=== PATIENT | male | born 1985 | race Caucasian/White ===

== ENCOUNTER 2022-08-31 05:03 | Emergency (ER) | payer OTHER ==
[2022-08-31] MEDS ORDERED: ceFAZolin 2 GM in Sodium Chloride 0.9% 50 ML IV ONE (06:06)
[2022-08-31] MEDS ORDERED: Sodium Chloride 0.9% 10 ML Syringe FLUSH PRN (06:06)
[2022-08-31] MEDS ORDERED: Diphtheria,Pertussis(Acell),Tetanus Vaccine 0.5 ML Syringe IM ONE (07:30)
== END 2022-08-31 08:09 | disposition other institution (70) ==
LOC: JD.ED 05:03
DX: S68.011A Complete traumatic metacarpophalangeal amputation of right thumb, initial encounter (principal); Z23 Encounter for immunization; W23.0XXA Caught, crushed, jammed, or pinched between moving objects, initial encounter
CPT/HCPCS: 64450; 73130; 90471; 90715; 96365; 99283; J0690; J3490; 99285